=== PATIENT | female | born 1990 | race Caucasian/White ===

== ENCOUNTER 2018-01-24 23:33 | Emergency (ER) | payer BC ==
--- NOTE | 2018-01-25 01:12 | EDM.PDOC ---
ED HPI GENERAL MEDICAL PROBLEM - General Chief Complaint: Chest Pain Stated Complaint: BACK/CHEST SHOULDER PAIN Time Seen by Provider: 01/25/18 00:07 Source of Information: Reports: Patient History Limitations: Reports: No Limitations - History of Present Illness INITIAL COMMENTS - FREE TEXT/NARRATIVE: This is a 27-year-old female. She was in the [place] today doing some hiking that required that she reach overhead and help stabilize herself as she was climbing up hills and various places. She did fine all day and was feeling good. They went to eat and she had sudden onset of sharp pain in her left chest area going into the left axilla. It seems like breathing deep eased it up considerably but exhaling seemed to make it worse. She did take some ibuprofen and now the pain has been relieved considerably though she still has some soreness in that area. She denies any cough she denies any near syncope she denies any fever or chills and no nausea or vomiting Left Chest Pain Score (Numeric/FACES): 7 - Related Data Allergies Allergy/AdvReac Type Severity Reaction Status Date / Time No Known Allergies Allergy Verified 01/24/18 23:50 Home Meds: Home Meds Nortriptyline 20 mg PO BEDTIME 01/24/18 [History] Topiramate [Topamax] 50 mg PO DAILY 01/24/18 [History] Past Medical History Musculoskeletal History: Reports: Fracture Neurological History: Reports: Migraines - Past Surgical History Musculoskeletal Surgical History: Reports: Arthroscopic Knee Social & Family History - Tobacco Use Smoking Status *Q: Never Smoker - Caffeine Use Caffeine Use: Reports: Soda - Recreational Drug Use Recreational Drug Use: No ED ROS GENERAL - Review of Systems Review Of Systems: See Below Constitutional: Denies: Fever, Chills HEENT: Reports: No Symptoms Respiratory: Denies: Shortness of Breath, Wheezing, Cough Cardiovascular: Reports: Chest Pain. Denies: Dyspnea on Exertion, Lightheadedness, Syncope Endocrine: Reports: No Symptoms GI/Abdominal: Reports: No Symptoms : Reports: No Symptoms Musculoskeletal: Reports: No Symptoms Skin: Reports: No Symptoms Neurological: Reports: No Symptoms Psychiatric: Reports: No Symptoms Hematologic/Lymphatic: Reports: No Symptoms ED EXAM, GENERAL - Physical Exam Exam: See Below Exam Limited By: No Limitations General Appearance: Alert, WD/WN, No Apparent Distress Eye Exam: Bilateral Eye: Normal Inspection Ears: Normal External Exam Nose: Normal Inspection Throat/Mouth: Normal Inspection, Normal Lips, Normal Voice, No Airway Compromise Head: Normocephalic Neck: Supple Respiratory/Chest: No Respiratory Distress, Lungs Clear, Normal Breath Sounds, Other (He does have some mild soreness in the upper left back muscles and slightly in the trapezius muscle on the shoulder, palpation of her left pectoralis muscle into the tendon area by her arm is slightly sore but no sharp pain) Cardiovascular: Regular Rate, Rhythm, No Murmur GI/Abdominal: Soft, Non-Tender Back Exam: Normal Inspection, Full Range of Motion Extremities: Normal Inspection, Normal Range of Motion Neurological: Alert, Oriented Psychiatric: Normal Affect, Normal Mood Skin Exam: Warm, Dry Course - Vital Signs Last Recorded V/S: Last Vital Signs Temp 98.1 F 01/24/18 23:45 Pulse 115 H 01/24/18 23:45 Resp 18 01/24/18 23:45 BP 129/85 01/24/18 23:45 Pulse Ox 100 01/24/18 23:45 - Orders/Labs/Meds Orders: Active Orders 24 hr Category Date Time Status Chest 2V [CR] Stat Exams 01/25/18 00:46 Taken Labs: Laboratory Tests 01/25/18 01/25/18 Range/Units 01:30 01:30 WBC 11.89 H (3.98-10.04) K/mm3 RBC 4.23 (3.98-5.22) M/mm3 Hgb 12.9 (11.2-15.7) gm/L Hct 39.2 (34.1-44.9) % MCV 92.7 (79.4-94.8) fl MCH 30.5 (25.6-32.2) pg MCHC 32.9 (32.2-35.5) g/dl RDW Std Deviation 45.1 (36.4-46.3) fL Plt Count 288 (182-369) K/mm3 MPV 9.4 (9.4-12.3) fl Neut % (Auto) 60.7 (34.0-71.1) % Lymph % (Auto) 28.0 (19.3-51.7) % [place] % (Auto) 9.5 (4.7-12.5) % Eos % (Auto) 1.0 (0.7-5.8) Baso % (Auto) 0.5 (0.1-1.2) % Neut # (Auto) 7.21 H (1.56-6.13) K/mm3 Lymph # (Auto) 3.33 (1.18-3.74) K/mm3 [place] # (Auto) 1.13 H (0.24-0.36) K/mm3 Eos # (Auto) 0.12 (0.04-0.36) K/mm3 Baso # (Auto) 0.06 (0.01-0.08) K/mm3 D-Dimer, Quantitative < 0.19 L (0.19-0.50) mg/L - Radiology Interpretation Free Text/Narrative:: Chest x-ray does not show any acute changes - Re-Assessments/Exams Free Text/Narrative Re-Assessment/Exam: 01/25/18 02:10 I spoke to the patient regarding her chest x-ray results as well as the lab result. She does not have an infiltrate in her lungs she does not have a pulmonary embolus. And her blood work looked good. I believe this is a pulled pectoralis muscle as well as the trapezius and upper back muscles. Departure - Departure Time of Disposition: 02:11 Disposition: Home, Self-Care 01 Condition: Good (Chest) Clinical Impression: Chest wall muscle strain Qualifiers: Encounter type: initial encounter Qualified Code(s): S29.011A - Strain of muscle and tendon of front wall of thorax, initial encounter Muscle strain of left upper back Qualifiers: Encounter type: initial encounter Qualified Code(s): S29.012A - Strain of muscle and tendon of back wall of thorax, initial encounter Referrals: Rossi Quevedo NP [Primary Care Provider] - Forms: ED Department Discharge Additional Instructions: Have someone to massage your back for the sore muscles, continue with ibuprofen or Aleve as needed for the soreness, follow-up with your family doctor as needed , return to the ER if needed - My Orders Last 24 Hours: My Active Orders 01/25/18 00:46 Chest 2V [CR] Stat - Assessment/Plan Last 24 Hours: My Active Orders 01/25/18 00:46 Chest 2V [CR] Stat
--- NOTE | 2018-01-26 08:23 | CR ---
Chest: Two views of the chest were obtained. Comparison: No prior chest x-ray. Heart size and mediastinum are within normal limits. Lung are clear. Bony structures are unremarkable. Impression: 1. Nothing acute is seen on two-view chest x-ray. Diagnostic code #1
== END 2018-01-25 02:17 | disposition home or self-care (01) ==
LOC: JD.ED 23:33
DX: S29.011A Strain of muscle and tendon of front wall of thorax, initial encounter (principal); S29.012A Strain of muscle and tendon of back wall of thorax, initial encounter; Z79.899 Other long term (current) drug therapy; X58.XXXA Exposure to other specified factors, initial encounter
CPT/HCPCS: 36415; 71046; 71046-26; 85025; 85379; 99283; 99284